=== PATIENT | male | born 1935 | race Caucasian/White ===

== ENCOUNTER 2016-12-16 09:45 | Inpatient (IN) | payer MEDICARE ==
[2016-12-16] VITALS (7 sets, daily range): BP systolic 98–148; BP diastolic 43–80
[~2016-12-16] VITALS: Ht 170.1 cm; Wt 68.3 kg
--- NOTE | ~2016-12-16 | DS ---
[place], [place] DISCHARGE SUMMARY NAME: ANDREAS PORTILLO [facility] #: [id number] UNIT #: [id number] ROOM: 421 DOCTOR: MARY CONNELL MD BIRTHDATE: [birth year] DOS: 12/19/2016 DIAGNOSES: 1. Urinary tract infection with Providencia stuartii. 2. Sepsis ruled out. 3. Long-term use of anticoagulants for chronic atrial fibrillation, which is controlled. 4. Metabolic encephalopathy with delirium from urinary tract infection as well as dementia. 5. Multiinfarct dementia. 6. Hypothyroidism. 7. Coronary artery disease with history of stent placement and chronic indwelling Pryor with chronic urinary retention. 8. Methicillin-resistant Staphylococcus aureus of the nares. DISCHARGE MEDICATIONS: Bactroban ointment for two nares twice a day for 14 days, Ceftin 250 twice daily for 7 days, tamsulosin 0.4 mg daily, metoprolol 25 b.i.d., Tylenol 650 q.4 hours p.r.n., Eliquis 2.5 twice a day, omeprazole 20 daily, rivastigmine 3 mg b.i.d., levothyroxine 25 mcg at bedtime, Risperdal 1 mg at bedtime, Megace b.i.d. HOSPITAL COURSE: The patient is 81 years old, very well known to us at the half-way, comes into the Emergency Room with complaints of fever and confusion. The patient has been quite combative recently and has been abusive to nursing staff at the [facility]. The patient after arrival was found to have UTI with metabolic encephalopathy as well as delirium from dementia, placed on IV fluids, IV antibiotics. Pryor catheter was quite gunky and was difficult to flush it, so the Pryor catheter was removed, but then the patient developed acute urinary retention and to be reinserted. Once the Pryor catheter was reinserted, he did have small amounts of blood in the Pryor bag, possibly from a traumatic insertion. This has cleared. Urine culture has grown Providencia stuartii, and the patient has been placed on appropriate antibiotics. His fevers have resolved. The patient is more pleasant and no longer combative. The plan therefore is to discharge him back to the half-way. Follow up as an outpatient. He does have a very soft, bruised heel, so need to keep pressure off both heels. There are no open wounds. [place], [place] DISCHARGE SUMMARY NAME: ANDREAS PORTILLO UNIT #: [id number] ROOM: [facility] DOCTOR: MARY CONNELL MD BIRTHDATE: [birth year] MARY CONNELL MD CM:DISCHARG 1 0 MARY CONNELL MD 12/19/16 0912 interface
--- NOTE | ~2016-12-16 | WRIGHTHP ---
[place], [place] PATIENT HISTORY AND PHYSICAL EXAM NAME: ANDREAS PORTILLO [facility] #: [id number] UNIT #: [id number] ROOM: 403 DOCTOR: MARY CONNELL MD BIRTHDATE: [birth year] DOS: 12/16/2016 HISTORY OF PRESENT ILLNESS: This patient is 81 years old. The patient was brought into the Emergency Room because he was unresponsive and nursing staff thought that he might have had a stroke. The patient was sent out to the Emergency Room, and he was diagnosed with UTI and metabolic encephalopathy and was admitted. This morning, the patient is awake and alert, but not oriented to time, place and person. He is pleasant and does not appear to be agitated or abusive which has been the state for the last couple of days at the [facility]. PAST MEDICAL HISTORY: Significant for; 1. Chronic indwelling Pryor catheter with chronic UTIs. 2. Chronic atrial fibrillation. 3. Noncompliance with poor insight into medical problems. The patient refuses meds most of the days. 4. Chronic kidney disease. 5. Coronary artery disease with stent placement. 6. History of GI bleed. 7. Multiinfarct dementia. 8. Delirium from dementia. 9. Hypothyroidism. MEDICATIONS: That the patient is on are Eliquis 2.5 b.i.d., Tylenol 650 q.4 hours, levothyroxine 25 at bedtime, Megace 400 b.i.d., metoprolol 25 b.i.d., omeprazole 20 daily, Risperdal 1 mg daily, rivastigmine 3 mg twice daily, Flomax 0.4 daily. SOCIAL HISTORY: Nonsmoker. PHYSICAL EXAMINATION: GENERAL: He is awake and alert, not oriented to time, place or person, but pleasant. VITAL SIGNS: Blood pressure is 150/78, pulse of 115, respirations 24, temperature 98.8. LUNGS: Diminished breath sounds. No wheezes, rales or rhonchi heard. HEART: Irregular. Heart rate controlled in the low 70s. ABDOMEN: Soft, scaphoid. Indwelling Pryor catheter draining clear urine. EXTREMITIES: Without any edema. LABORATORY DATA: Glucose 215, BUN 45, creatinine 2.01. Sodium 146, potassium 4.8, chloride 113. WBC count is 16.5, hemoglobin 14.9, hematocrit 45.5, platelets 175. CT of the head unremarkable except for patchy areas of deep periventricular white matter changes. ASSESSMENT AND PLAN: 1. Urinary tract infection. IV antibiotics have been ordered. Urine culture pending. 2. Chronic kidney disease with acute kidney injury, possibly from underlying infectious process. The patient is placed on IV fluids. [place], [place] PATIENT HISTORY AND PHYSICAL EXAM NAME: ANDREAS PORTILLO UNIT #: [id number] ROOM: 403 DOCTOR: MARY CONNELL MD BIRTHDATE: [birth year] 3. Dementia with delirium and metabolic encephalopathy improved. The patient is not agitated here, should go back to the [facility] once we have the urine culture report back. MARY CONNELL MD CM:HISPHYS:PATIENT HISTORY AND PHYSICAL EXAMINATION [id number] MARY CONNELL MD 12/17/16 1010 interface
--- NOTE | ~2016-12-16 | PR ---
[place], [place] PROGRESS NOTE [facility] [id number] UNIT #: [id number] ROOM: 421 DOCTOR: MARY CONNELL MD BIRTHDATE: [birth year] DOS: 12/19/2016 SUBJECTIVE: The patient is resting comfortably, seems to be more pleasant this morning, not agitated. OBJECTIVE: VITAL SIGNS: Graphic trend shows a pressure of 103/65, pulse of 91, respirations 18, temperature 98.2. LUNGS: Diminished breath sounds. HEART: Irregular. ABDOMEN: Obese, soft, nontender. EXTREMITIES: Without any edema. LABORATORY DATA: Urine in the Pryor is cleared. ASSESSMENT AND PLAN: 1. Urinary tract infection with Providencia stuartii, on IV antibiotics. We can switch to p.o. and can be discharged back to the long term. 2. Chronic atrial fibrillation with long-term use of anticoagulants. 3. Sepsis criteria on admission, the blood cultures have been negative, so the sepsis has been ruled out. 4. Metabolic encephalopathy with delirium, improved. 5. Methicillin-resistant Staphylococcus aureus of the nares, on medications. MARY CONNELL MD CM:PNTRANS [id number] MARY CONNELL MD 12/19/16 1036 interface
--- NOTE | ~2016-12-16 | PR ---
[place], [place] PROGRESS NOTE [id number] UN[facility] #: [id number] ROOM: 403 DOCTOR: MARY CONNELL MD BIRTHDATE: [birth year] DOS: SUBJECTIVE: The patient had his Pryor catheter removed yesterday by nursing staff because it was hard to flush it and then he developed acute retention of urine, a Pryor catheter was reinserted. At this time he had a lot of blood in the urine. He denies having any complaints this morning he is pleasantly confused. OBJECTIVE: VITAL SIGNS: Graphic trend shows a pressure 110/64, pulse of , respirations 18, temperature 98.3. LUNGS: Diminished breath sounds. No wheezes heard. HEART: Regular. ABDOMEN: Obese. EXTREMITIES: Without any edema. LABORATORY DATA: MRSA of the nares was positive. Urine culture shows 100,000 gram-negative. Identification is not available. ASSESSMENT AND PLAN: 1. Fever with urinary tract infection and possible urosepsis again, blood cultures are not back yet. Lactic acid was normal. WBC count is 16.5. Repeat labs will be ordered for tomorrow and then the patient is going to have medication adjustments ordered once we have the sensitivities. He should be able to go back to the [facility] once we have the proper antibiotic regimen. 2. Methicillin-resistant Staphylococcus aureus of the nares. Bactroban ointment will be ordered. 3. Chronic indwelling Pryor catheter, which we will continue, there is a little bit of blood in the catheters. This was a traumatic insertion, but it looks like it is clearing up. 4. Chronic atrial fibrillation, on Eliquis, which we will continue. MARY CONNELL MD CM:PNTRANS [id number] MARY CONNELL MD 12/18/16 104 interface
[~2016-12-16 09:45] MED LIST: APAP325 MG PO; AUGMENTIN 875-875 MG PO; BACTRIM DS 8001 TA1 PO; CEFUROXIME AXE250 MG PO; CIPROFLOXACIN500 MG PO; COLACE100 MG PO; COUMADIN2.5 M1 PO; COUMADIN5 M2 PO; DULCOLAX10 MG R; ELIQUIS2.5 M1 PO; EXELON9.5 MG/24 TD; FENOFIBRATE134 MG PO; FENOFIBRATE145 M1 PO; FINASTERIDE5 M1 PO; FLEET 135 ML135 ML R; FLOMAX0.4 MG PO; HYDROCODONE BIT1 T11 PO; HYDROCODONE W/1 TA1 PO; HYDROPHOR1 OI1 TP; LANTUS100 U/ML SC; Lopressor25 MG PO; METFORMIN HCL1000 MG PO; MOM30 ML PO; NAMENDA-28 PO; OMEPRAZOLE D/R20 MG PO; OXYCODONE HCL5 MG PO; OXYCODONE5 MG PO; PERCOCET 325 MG1 TA7 PO; PROTONIX40 MG PO; RIVASTIGMINE1 EAC1 T; SIMVASTATIN40 MG PO; SYNTHROID0.025 MG PO; TAMSULOSIN HCL0.4 MG PO; TOPROL XL25 MG PO; TYLENOL325 M1 PO; VICO75300 PO; VITAMIN D5000 I3 PO; WARFARIN SOD5 MG PO; ZOLOFT50 MG PO
[2016-12-16] MEDS ORDERED: RIVASTIGMINE TAR3 M1 PO (10:10)
[2016-12-16] MEDS ORDERED: SYNTHROID25 MCG PO (10:11)
[2016-12-16] MEDS ORDERED: RISPERIDONE1 MG PO (10:12)
[2016-12-16 10:25] LABS: BASO % 0.2 % (0.0-1.0); EOS % 0.1 % (1.0-4.0); HEMOGLOBIN 14.4 g/dl (14.0-18.0); IG # 0.1 10*3/uL (0.0-0.1); LYMPH # 1.5 10*3/uL (1.3-4.4); LYMPH % 10.5 % (27.0-41.0); MEAN CELL VOLUME 96.3 fl (80.0-94.0); MEAN CORPUSCULAR HGB 31.5 pg (27.0-31.0); MEAN CORPUSCULAR HGB CONC 32.7 g/dl (33.0-37.0); MEAN PLATELET VOLUME 11.4 fl (9.6-12.3); MONO # 0.7 10*3/uL (0.1-1.0); MONO % 5.1 % (3.0-9.0); NEUT # 11.8 10*3/uL (2.3-7.9); NEUT % 83.7 % (47.0-73.0); PLATELET COUNT AUTOMATED 144 10*3/uL (130-400); RED BLOOD COUNT 4.57 10*6/uL (4.50-5.90); RED CELL DISTRI WIDTH 14.6 % (0-14.5); WHITE BLOOD COUNT 14.1 10*3/uL (4.8-10.8)
[2016-12-16 10:39] LABS: ALBUMIN 2.9 gm/dl (3.1-4.5); BILIRUBIN, TOTAL 1.1 mg/dl (0.2-1.0); C-REACTIVE PROTEIN 6.72 MG/DL (0-0.3); MAGNESIUM 2.6 mg/dL (1.5-2.1); POTASSIUM 4.6 mmol/L (3.5-5.1); TOTAL PROTEIN 7.3 gm/dL (6.4-8.2)
[2016-12-16 10:55] LABS: BILIRUBIN NEGATIVE (NEGATIVE); BLOOD 1+ (NEGATIVE); CLARITY CLOUDY (CLEAR); COLOR YELLOW (YELLOW); GLUCOSE NEGATIVE (NEGATIVE); KETONE NEGATIVE (NEGATIVE); LEUKO ESTERASE 3+ (NEGATIVE); NITRITE NEGATIVE (NEGATIVE); PH >= 9.0 (5.0-9.0); PROTEIN 3+ (NEGATIVE); SPECIFIC GRAVITY <= 1.005 (1.005-1.030)
[2016-12-16 11:01] LABS: BACTERIA 4+
[2016-12-16 11:03] LABS: TRIP PHOS CRYSTALS 2+
[2016-12-16 11:05] LABS: URINE REFLEX COMMENT YES (NO); WBC 16-20 wbc/hpf (0-5)
[2016-12-16 12:23] LABS: INTERNATIONAL NORM RATIO 1.1 (2.0-3.5); PROTHROMBIN TIME 11.5 SECONDS (9.0-12.4)
[2016-12-16] MEDS ORDERED: MEGACE 40400 MG/10 PO (15:42)
[2016-12-17] VITALS: BP 136/77
[2016-12-17 04:00] VITALS: BP 136/77
[2016-12-17 06:05] LABS: POTASSIUM 4.8 mmol/L (3.5-5.1)
[2016-12-17 06:18] LABS: HEMATOCRIT 45.5 % (42.0-52.0); HEMOGLOBIN 14.9 g/dl (14.0-18.0); MEAN CORPUSCULAR HGB 31.1 pg (27.0-31.0); MEAN CORPUSCULAR HGB CONC 32.7 g/dl (33.0-37.0); MEAN PLATELET VOLUME 11.3 fl (9.6-12.3); PLATELET COUNT AUTOMATED 175 10*3/uL (130-400); RED BLOOD COUNT 4.79 10*6/uL (4.50-5.90); RED CELL DISTRI WIDTH 14.2 % (0-14.5); WHITE BLOOD COUNT 16.5 10*3/uL (4.8-10.8)
[2016-12-17 06:58] LABS: LYMPHOCYTE # 0.2 10*3/uL (1.3-4.4); MONOCYTE # 0.7 10*3/uL (0.1-1.0); NEUTROPHIL # 15.7 10*3/uL (2.3-7.9); NEUTROPHILS 95 % (47-73); TOTAL CELLS COUNTED 100 #CELLS
[2016-12-17 06:59] LABS: PLATELET SUFFICIENCY NORMAL (NORMAL)
[2016-12-17 08:00] VITALS: BP 150/78
[2016-12-17 12:00] VITALS: BP 156/82
[2016-12-17 16:00] VITALS: BP 113/67
[2016-12-17 20:00] VITALS: BP 102/52
[2016-12-18] VITALS: BP 110/64
[2016-12-18 08:00] VITALS: BP 123/57
[2016-12-18 12:00] VITALS: BP 116/62
[2016-12-18 16:00] VITALS: BP 104/57
[2016-12-18 20:00] VITALS: BP 100/55
[2016-12-19] VITALS: BP 106/58
[2016-12-19 08:00] VITALS: BP 103/65
[2016-12-19] MEDS ORDERED: CEFUROXIME AXE250 MG PO (08:18)
[2016-12-19] MEDS ORDERED: BACTROBAN OINT0.9 GM NAS (08:18)
== END 2016-12-19 11:23 | disposition other institution (70) | DRG 689 ==
LOC: ED 09:45 → 4E 13:45 → EDHOLD 13:45 → 4E 14:09
PROVIDERS: Emergency Medicine Emergency Medical Services; Internal Medicine
DX: N39.0 Urinary tract infection, site not specified (principal); G93.41 Metabolic encephalopathy; N17.9 Acute kidney failure, unspecified; F01.51 Vascular dementia, unspecified severity, with behavioral disturbance; I48.2 Chronic atrial fibrillation; N18.9 Chronic kidney disease, unspecified; I25.10 Atherosclerotic heart disease of native coronary artery without angina pectoris; E03.9 Hypothyroidism, unspecified; B95.62 Methicillin resistant Staphylococcus aureus infection as the cause of diseases classified elsewhere; B96.89 Other specified bacterial agents as the cause of diseases classified elsewhere; E66.9 Obesity, unspecified; Z95.1 Presence of aortocoronary bypass graft; I25.2 Old myocardial infarction; Z68.27 Body mass index [BMI] 27.0-27.9, adult; Z87.81 Personal history of (healed) traumatic fracture; Z79.01 Long term (current) use of anticoagulants; Z95.5 Presence of coronary angioplasty implant and graft; Z79.899 Other long term (current) drug therapy

== ENCOUNTER 2017-01-18 10:40 | Emergency (ER) | payer MEDICARE ==
[~2017-01-18] VITALS: Ht 182.8 cm
[2017-01-18 10:40] VITALS: BP 119/69
[~2017-01-18 10:40] MED LIST changes: +BACTROBAN OINT0.9 GM NAS; +MEGACE 40400 MG/10 PO; +RISPERIDONE1 MG PO; +RIVASTIGMINE TAR3 M1 PO; +SYNTHROID25 MCG PO
[2017-01-18 12:00] VITALS: BP 138/88
[2017-01-18 12:12] LABS: BASO % 0.2 % (0.0-1.0); EOS % 0.1 % (1.0-4.0); HEMATOCRIT 40.8 % (42.0-52.0); HEMOGLOBIN 13.1 g/dl (14.0-18.0); IG # 0.1 10*3/uL (0.0-0.1); LYMPH # 2.3 10*3/uL (1.3-4.4); LYMPH % 18.5 % (27.0-41.0); MEAN CELL VOLUME 95.1 fl (80.0-94.0); MEAN CORPUSCULAR HGB 30.5 pg (27.0-31.0); MEAN CORPUSCULAR HGB CONC 32.1 g/dl (33.0-37.0); MEAN PLATELET VOLUME 11.2 fl (9.6-12.3); MONO # 0.7 10*3/uL (0.1-1.0); MONO % 5.9 % (3.0-9.0); NEUT # 9.1 10*3/uL (2.3-7.9); NEUT % 74.9 % (47.0-73.0); PLATELET COUNT AUTOMATED 165 10*3/uL (130-400); RED BLOOD COUNT 4.29 10*6/uL (4.50-5.90); RED CELL DISTRI WIDTH 14.5 % (0-14.5); WHITE BLOOD COUNT 12.2 10*3/uL (4.8-10.8)
[2017-01-18 12:20] LABS: INTERNATIONAL NORM RATIO 1.2 (2.0-3.5); PROTHROMBIN TIME 12.3 SECONDS (9.0-12.4)
[2017-01-18 12:29] LABS: ALBUMIN 2.7 gm/dl (3.1-4.5); BILIRUBIN, TOTAL 0.7 mg/dl (0.2-1.0); C-REACTIVE PROTEIN 5.33 MG/DL (0-0.3); MAGNESIUM 2.4 mg/dL (1.5-2.1); TOTAL PROTEIN 7.4 gm/dL (6.4-8.2)
[2017-01-18 12:36] LABS: TROPONIN I 9.88 ng/ml (<0.045)
[2017-01-18] MEDS ORDERED: KEFLEX500 M1 PO (13:26)
[2017-01-18] MEDS ORDERED: EXEL13.31 PO (13:27)
[2017-01-18] MEDS ORDERED: NAMENDA XR28 M1 PO (13:32)
[2017-01-18] MEDS ORDERED: DEPAKOTE DR500 MG PO (13:32)
[2017-01-18] MEDS ORDERED: MORPHINE S20 MG/5 ML PO (13:35)
[2017-01-18 13:47] VITALS: BP 138/94
[2017-01-18 14:07] LABS: LA>2 REFLEX 2 HR DRAW NOW
== END 2017-01-18 15:21 ==
LOC: ED 10:40 → EDHOLD 13:17 → ED 13:17
PROVIDERS: Student in an Organized Health Care Education/Training Program
DX: I21.4 Non-ST elevation (NSTEMI) myocardial infarction (principal); G93.41 Metabolic encephalopathy; R79.89 Other specified abnormal findings of blood chemistry; Z79.899 Other long term (current) drug therapy; W18.39XA Other fall on same level, initial encounter; Y93.89 Activity, other specified; Y92.89 Other specified places as the place of occurrence of the external cause; Y99.8 Other external cause status